=== PATIENT | male | born 1990 | race African-American/Black ===

== ENCOUNTER 2016-10-03 10:40 | Emergency (ER) | payer SELFPAY ==
[~2016-10-03] VITALS: Ht 170.2 cm; Wt 64.0 kg
[2016-10-03] MEDS ORDERED: DIPHENHYDRAMINE 50MG CAPSULE PO ONE (11:45)
[2016-10-03] MEDS ORDERED: PREDNISONE 20MG TABLET PO ONE (11:45)
[2016-10-03] MEDS ORDERED: FAMOTIDINE 20MG TABLET PO ONE (11:45)
[2016-10-03 12:22] VITALS: BP 139/79
== END 2016-10-03 12:27 | disposition home or self-care (01) ==
LOC: ER 12:07
DX: T78.40XA Allergy, unspecified, initial encounter (principal); I10 Essential (primary) hypertension; F17.210 Nicotine dependence, cigarettes, uncomplicated; X58.XXXA Exposure to other specified factors, initial encounter
CPT/HCPCS: 99284; J7512; Q0163